=== PATIENT | male | born 1965 | race African-American/Black ===

== ENCOUNTER 2022-06-28 06:17 | Day surgery (SDC) | payer BC ==
[2022-06-21 10:24] VITALS: BMI 28.7
[2022-06-28] MEDS ORDERED: BUPIVACAINE HCL/PF 0.25% (2.5MG/ML) 10 ML VIAL ONE (07:18)
[2022-06-28] MEDS ORDERED: EPINEPHrine 1:1,000 1,000 MCG/ML ML ONE (07:18)
[2022-06-28] MEDS ORDERED: PROPOFOL 20 ML ONE ×2 (07:29→08:19)
[2022-06-28] MEDS ORDERED: LIDOCAINE HCL/PF 2% SDV 5ML VIAL ONE (07:29)
[2022-06-28] MEDS ORDERED: MIDAZOLAM HCL 2 MG/2 ML SINGLE DOSE VIAL ONE (07:29)
[2022-06-28] MEDS ORDERED: ONDANSETRON 4 MG/2 ML VIAL ONE (08:01)
[2022-06-28] MEDS ORDERED: DEXAMETHASONE SOD PHOSPHATE 4 MG/1 ML VIAL ONE (08:01)
[2022-06-28] MEDS ORDERED: oxyCODONE HCL 5 MG TABLET PO PRN (08:52)
[2022-06-28] MEDS ORDERED: IBUPROFEN 800 MG/8 ML IJ IVPB PRN (08:52)
[2022-06-28] MEDS ORDERED: ONDANSETRON 4 MG/2 ML VIAL IVPUSH PRN (08:52)
[2022-06-28] MEDS ORDERED: ACETAMINOPHEN 1000 MG/100 ML BAG IVPB ONE (08:53)
[2022-06-28] MEDS ORDERED: LACTATED RINGERS SOLUTION 1,000 ML IV SCH (09:00)
[2022-06-28] MEDS ORDERED: FENTANYL CITRATE/PF 50 MCG/ML VIAL ONE (09:32)
[2022-06-28] MEDS ORDERED: oxyCODONE HCL 5 MG TABLET ONE (10:06)
[2022-06-28] MEDS ORDERED: oxyCODONE HCL 5 MG TABLET PO ONE (10:10)
[2022-06-28 10:16] VITALS: RESP 18; TEMP 97.8
[2022-06-28 10:57] VITALS: BP 130/70; PULSE 64
== END 2022-06-28 10:55 | disposition home or self-care (01) ==
LOC: FASUSAT 06:17
PROVIDERS: ATTEND Orthopaedic Surgery Sports Medicine
PROC: 0SBD4ZZ Excision of Left Knee Joint, Percutaneous Endoscopic Approach (ICD-10-PCS; principal; 2022-06-28 08:10)
DX: S83.242A Other tear of medial meniscus, current injury, left knee, initial encounter (principal); M65.862 Other synovitis and tenosynovitis, left lower leg; M94.262 Chondromalacia, left knee; X58.XXXA Exposure to other specified factors, initial encounter; Y92.9 Unspecified place or not applicable; Y93.9 Activity, unspecified
CPT/HCPCS: 94760

== ENCOUNTER 2023-12-22 04:37 | Day surgery (SDC) | payer BC ==
[2023-12-19 11:30] VITALS: BMI 32.8
[2023-12-22] MEDS ORDERED: SIMETHICONE 40 MG/0.6 ML BOTTLE ONE (08:53)
[2023-12-22 10:03] VITALS: TEMP 97.5
[2023-12-22 10:22] VITALS: RESP 20
[2023-12-22 10:56] VITALS: BP 119/72; PULSE 68
== END 2023-12-22 10:48 | disposition home or self-care (01) ==
LOC: JASU-ENDO 04:37
PROVIDERS: ATTEND Internal Medicine Gastroenterology
PROC: 0DBN8ZX Excision of Sigmoid Colon, Via Natural or Artificial Opening Endoscopic, Diagnostic (ICD-10-PCS; 2023-12-22)
PROC: 0DB68ZX Excision of Stomach, Via Natural or Artificial Opening Endoscopic, Diagnostic (ICD-10-PCS; 2023-12-22)
PROC: 0DB78ZX Excision of Stomach, Pylorus, Via Natural or Artificial Opening Endoscopic, Diagnostic (ICD-10-PCS; 2023-12-22)
PROC: 0DBM8ZX Excision of Descending Colon, Via Natural or Artificial Opening Endoscopic, Diagnostic (ICD-10-PCS; principal; 2023-12-22 09:00)
DX: Z12.11 Encounter for screening for malignant neoplasm of colon (principal); K63.5 Polyp of colon; K64.8 Other hemorrhoids; K57.30 Diverticulosis of large intestine without perforation or abscess without bleeding; K29.50 Unspecified chronic gastritis without bleeding; K22.5 Diverticulum of esophagus, acquired; Z80.0 Family history of malignant neoplasm of digestive organs
CPT/HCPCS: 82962; 88305-TC; 88342-TC